=== PATIENT | female | born 1965 | race Caucasian/White ===

== ENCOUNTER 2017-02-26 16:42 | Emergency (ER) | payer BC, OTHER ==
[~2017-02-26] VITALS: Ht 170.2 cm; Wt 88.5 kg
[~2017-02-26 16:42] MED LIST: KEFLEX500 MG PO
[2017-02-26 21:11] VITALS: BP 117/85
== END 2017-02-26 21:12 | disposition home or self-care (01) ==
LOC: EME 16:42
DX: R51 Headache (principal); M54.2 Cervicalgia; R42 Dizziness and giddiness; H53.8 Other visual disturbances
CPT/HCPCS: 70450; 99281; 99283

== ENCOUNTER 2017-04-11 17:27 | Emergency (ER) | payer OTHER ==
[~2017-04-11] VITALS: Ht 170.2 cm; Wt 92.4 kg
[2017-04-11 17:32] VITALS: BP 103/79
[2017-04-11 17:59] LABS: HEMOGLOBIN 14.1 G/DL (11.9-15.5); MCH 29.7 PG (29.0-34.0); MCHC 33.6 G/DL (30.0-36.0); MCV 88.4 FL (83-99); PLATELET COUNT 320 K/uL (156-360); RBC DIS.WIDTH-SD 42.4 % (39-53); RED BLOOD COUNT 4.75 M/uL (3.80-5.20); WHITE BLOOD COUNT 7.8 K/uL (4.1-10.2)
[2017-04-11 18:00] LABS: APPEARANCE CLOUDY ((CLEAR)); BILIRUBIN NEGATIVE; BLOOD NEGATIVE; COLOR AMBER ((YELLOW)); GLUCOSE (STRIP) NEGATIVE; KETONES NEGATIVE; LEUKOCYTES NEGATIVE; NITRITE NEGATIVE; PROTEIN (STRIP) NEGATIVE; SPECIFIC GRAVITY 1.008 (1.000-1.030); UROBILINOGEN 0.2 MG/DL (0.2-1.0)
[2017-04-11 18:02] LABS: BACTERIA RARE /HPF; EPITHELIAL CELLS RARE /HPF; MUCUS TRACE /LPF; RED BLOOD CELLS 0-5 /HPF (0-5); UCUL ADDED? NO; WHITE BLOOD CELLS 0-5 /HPF (0-5)
[2017-04-11 18:27] LABS: CHLORIDE 106 MEQ/L (99-109); POTASSIUM 4.2 MEQ/L (3.7-5.4); SODIUM 141 MEQ/L (136-147)
[2017-04-11 18:33] LABS: GFR ESTIMATE (CALCULATED) > 59 mL/min/; GLUCOSE 89 mg/dL (70-99); UREA NITROGEN (BUN) 16 mg/dL (9-23)
[2017-04-11 19:33] LABS: ALBUMIN 4.3 G/DL (3.2-4.8); ALKALINE PHOSPHATASE 63 IU/L (3-129); ALT (GPT) 47 IU/L (3-49); AST (GOT) 49 IU/L (2-34); LIPASE 47 U/L (1.0-51.0); TOTAL BILIRUBIN 0.4 MG/DL (0.0-1.0); TOTAL PROTEIN 7.8 G/DL (6.4-8.3)
[2017-04-11] MEDS ORDERED: ROXICODONE5 MG PO (20:07)
[2017-04-11] MEDS ORDERED: LIDODERM 5% P1 PATCH TD (20:07)
[2017-04-11] MEDS ORDERED: FLEXERIL10 MG PO (20:07)
== END 2017-04-11 20:30 | disposition home or self-care (01) ==
LOC: EME 17:27
DX: R10.9 Unspecified abdominal pain (principal); M54.9 Dorsalgia, unspecified
CPT/HCPCS: 74176; 80048; 80076; 81003; 83690; 85027; 99281; 99284